=== PATIENT | female | born 1950 | race Caucasian/White ===

== ENCOUNTER 2016-04-16 12:44 | Emergency (ER) | payer BC ==
[2016-04-16 13:19] VITALS: BP 167/83
--- NOTE | 2016-04-16 13:39 | UC ---
Throat Pain/Nasal Ramón HPI - HPI Summary HPI Summary: patient started with a sever sore throat and cough 1 weeks ago and now has some sinus pressure. - History of Current Complaint Chief Complaint: UCRespiratory Stated Complaint: COUGH,SINUS Time Seen by Provider: 04/16/16 13:18 Hx Obtained From: Patient ?: No Onset/Duration: Sudden Onset, Lasting Days Severity: Severe Pain Intensity: 8 Pain Scale Used: 0-10 Numeric Cough: Nonproductive Associated Signs & Symptoms: Positive: Dysphagia, Wheezing, Sinus Discomfort - Epiglottits Risk Factors Epiglottis Risk Factors: Negative - Allergies/Home Medications Allergies/Adverse Reactions: Allergies Allergy/AdvReac Type Severity Reaction Status Date / Time No Known Allergies Allergy Verified 04/16/16 13:19 PMH/Surg Hx/FS Hx/Imm Hx Previously Healthy: Yes Cardiovascular History Of: Reports: Hypertension - BE WATCHED BY HER MD - Surgical History Surgical History: Yes Surgery Procedure, Year, and Place: APPENDECTOMY, TONSILECTOMY - Family History Known Family History: Positive: Hypertension - Social History Alcohol Use: None Substance Use Type: None Smoking Status (MU): Never Smoked Tobacco Review of Systems Constitutional: Fatigue Skin: Negative Eyes: Negative ENT: Sore Throat, Ear Ache, Nasal Discharge Respiratory: Shortness Of Breath, Cough Cardiovascular: Negative Gastrointestinal: Negative Genitourinary: Negative Motor: Negative Neurovascular: Negative Musculoskeletal: Negative Neurological: Negative Psychological: Negative All Other Systems Reviewed And Are Negative: Yes Physical Exam Triage Information Reviewed: Yes Appearance: Well-Nourished, Ill-Appearing, Pain Distress Vital Signs: Initial Vital Signs Temp 98.9 F 04/16/16 13:11 Pulse 70 04/16/16 13:11 Resp 18 04/16/16 13:11 BP 167/83 04/16/16 13:11 Pulse Ox 99 04/16/16 13:11 Vital Signs Reviewed: Yes Eye Exam: Normal Eyes: Positive: Conjunctiva Clear ENT Exam: Normal ENT: Positive: Normal ENT inspection, Pharyngeal erythema, TM bulging, Tonsillar swelling Dental Exam: Normal Neck exam: Normal Neck: Positive: Supple, Nontender, No Lymphadenopathy Respiratory Exam: Normal Respiratory: Positive: Chest non-tender, No respiratory distress, Wheezing, Inspiration Cardiovascular Exam: Normal Cardiovascular: Positive: RRR, No Murmur, Pulses Normal Abdominal Exam: Normal Abdomen Description: Positive: Nontender, No Organomegaly, Soft Bowel Sounds: Positive: Present Musculoskeletal Exam: Normal Musculoskeletal: Positive: Strength Intact, ROM Intact, No Edema Neurological Exam: Normal Neurological: Positive: Alert, Muscle Tone Normal Psychological Exam: Normal Skin Exam: Normal Throat Pain/Nasal Course/Dx - Course Course Of Treatment: hx obtained, exam performed, meds reviewed educated on manual sinus drainage. medications prescribed. - Differential Dx/Diagnosis Differential Diagnosis/HQI/PQRI: Influenza, Laryngitis, Otitis Media, Pharyngitis, Sinusitis, Tonsillitis, URI Provider Diagnoses: pharyngitis. cough. nasal congestion Discharge - Discharge Plan Condition: Stable Disposition: HOME Prescriptions: Benzonatate CAP* [Tessalon CAP*] 100 mg PO TID #21 cap Patient Education Materials: Pharyngitis (ED) Referrals: Ulysses Mccrary MD [Primary Care Provider] - Additional Instructions: take the medication as prescribed. continue with sinus drainage, neti pot and salt water gargles. Ibuprofen or tylenol for pain and fever. Get plety of rest and fluids.
== END 2016-04-16 14:04 | disposition home or self-care (01) ==
LOC: UCCORT 12:44
DX: J02.9 Acute pharyngitis, unspecified (principal); R05 Cough; R09.81 Nasal congestion; I10 Essential (primary) hypertension
CPT/HCPCS: 87651; 99212; G0463